=== PATIENT | female | born 1960 | race African-American/Black ===

== ENCOUNTER 2017-11-03 07:30 | Emergency (ER) | payer SELFPAY ==
[~2017-11-03] VITALS: Ht 167.6 cm; Wt 98.0 kg
[2017-11-03] MEDS ORDERED: IOHEXOL 350 MG/ML 10 ML VIAL (for RAD DIAG) IVCONTRAST ONE (07:31)
[2017-11-03 07:32] VITALS: BP 191/97; PULSE 83; RESP 14; TEMP 97.7; O2SAT 99
[2017-11-03 07:45] VITALS: O2SAT 97
[2017-11-03] MEDS ORDERED: SODIUM CHLOR 0.9% 1000 ML INJ 1,000 ML IV SCH (07:49)
--- NOTE | 2017-11-03 07:52 | PD ---
HPI Chief Complaint: Abdominal Pain Time Seen by Provider: 07:45 Travel History International Travel<30 days: No Contact w/Intl Traveler<30days: No Traveled to known affect area: No History of Present Illness HPI 57-year-old female complains of constipation for year. She reports diffuse abdominal pain now. Positive bowel movements are reported however she reports large hard stool like the shape of a brick. It is nonbloody. She denies fever. She has tried various [id number] laxatives which have not helped. Diet modification has not helped. She reports a family history of cancer however has had none herself. She reports vomiting once in the past few days however denies nausea vomiting within the past few days at the time of interview. PFSH Past Medical History Diminished Hearing: No Medical other: Yes (HERNIA) Respiratory: Yes (CHRONIC BRONCHITIS) Shingles: Yes Tetanus Vaccination: > 5 Years Influenza Vaccination: No : 3 Para: 2 Miscarriage: 0 : 1 Past Surgical History Section: Yes (X2) Gynecologic Surgery: Yes () Social History Alcohol Use: No (HX OF) Tobacco Use: No (QUIT 12/2016) Substance Use: No (HX OF MARIJUANA, SMOKE COCAINE) Allergies-Medications (Allergen,Severity, Reaction): Coded Allergies: No Known Allergies (Unverified Adverse Reaction, Unknown, 11/03/17) Reported Meds & Prescriptions Reported Meds & Active Scripts Active Polyethylene Glycol 3350 Powder (Polyethylene Glycol) 17 Gram Pow 17 Gm PO DAILY 14 Days Review of Systems Except as stated in HPI: all other systems reviewed are Neg Physical Exam Narrative GENERAL: 57-year-old female pleasant well-nourished well-developed speaking full sentences ambulatory refuses rectal exam Vital Signs Date Time Temp Pulse Resp B/P (MAP) Pulse Ox O2 Delivery O2 Flow Rate FiO2 11/03/17 07:32 97.7 83 14 191/97 (128) 99 SKIN: Warm and dry. HEAD: Atraumatic. Normocephalic. EYES: Pupils equal and round. No scleral icterus. No injection or drainage. ENT: No nasal bleeding or discharge. Mucous membranes pink and moist. NECK: Trachea midline. No JVD. CARDIOVASCULAR: Regular rate and rhythm. RESPIRATORY: No accessory muscle use. Clear to auscultation. Breath sounds equal bilaterally. GASTROINTESTINAL: Soft. No focus of tenderness. No distention. MUSCULOSKELETAL: Extremities without clubbing, cyanosis, or edema. No obvious deformities. NEUROLOGICAL: Awake and alert. No obvious cranial nerve deficits. Motor grossly within normal limits. Five out of 5 muscle strength in the arms and legs. Normal speech. PSYCHIATRIC: Appropriate mood and affect; insight and judgment normal. Data Data Last Documented VS Vital Signs Date Time Temp Pulse Resp B/P (MAP) Pulse Ox O2 Delivery O2 Flow Rate FiO2 11/03/17 11:18 74 16 162/74 (103) 99 11/03/17 07:45 Room Air 11/03/17 07:32 97.7 Orders Orders Complete Blood Count With Diff (11/03/17 07:49) Comprehensive Metabolic Panel (11/03/17 07:49) Lipase (11/03/17 07:49) Urinalysis - C+S If Indicated (11/03/17 07:49) Ct Abd/Pel W Iv Contrast(Rout) (11/03/17 07:49) Iv Access Insert/Monitor (11/03/17 07:49) Ecg Monitoring (11/03/17 07:49) Oximetry (11/03/17 07:49) Morphine Inj (Morphine Inj) (11/03/17 08:00) Ondansetron Inj (Zofran Inj) (11/03/17 08:00) Sodium Chlor 0.9% 1000 Ml Inj (Ns 1000 M (11/03/17 07:49) Sodium Chloride 0.9% Flush (Ns Flush) (11/03/17 08:00) Oral Contrast - Adult (11/03/17 08:06) Diatrizoate Liq (Md Rowell Liq) (11/03/17 08:13) Diatrizoate Liq (Md Rowell Liq) (11/03/17 08:20) Iohexol 350 Inj (Omnipaque 350 Inj) (11/03/17 07:31) Ed Discharge Order (11/03/17 11:17) Labs Laboratory Tests Test 11/03/17 08:00 11/03/17 09:00 White Blood Count 7.3 TH/MM3 Red Blood Count 4.44 MIL/MM3 Hemoglobin 13.2 GM/DL Hematocrit 39.1 % Mean Corpuscular Volume 88.2 FL Mean Corpuscular Hemoglobin 29.8 PG Mean Corpuscular Hemoglobin Concent 33.8 % Red Cell Distribution Width 14.6 % Platelet Count 224 TH/MM3 Mean Platelet Volume 9.6 FL Neutrophils (%) (Auto) 51.0 % Lymphocytes (%) (Auto) 40.7 % Monocytes (%) (Auto) 6.0 % Eosinophils (%) (Auto) 1.7 % Basophils (%) (Auto) 0.6 % Neutrophils # (Auto) 3.7 TH/MM3 Lymphocytes # (Auto) 3.0 TH/MM3 Monocytes # (Auto) 0.4 TH/MM3 Eosinophils # (Auto) 0.1 TH/MM3 Basophils # (Auto) 0.0 TH/MM3 CBC Comment DIFF FINAL Differential Comment Blood Urea Nitrogen 11 MG/DL Creatinine 0.94 MG/DL Random Glucose 104 MG/DL Total Protein 7.7 GM/DL Albumin 4.1 GM/DL Calcium Level 9.2 MG/DL Alkaline Phosphatase 78 U/L Aspartate Amino Transf (AST/SGOT) 21 U/L Alanine Aminotransferase (ALT/SGPT) 31 U/L Total Bilirubin 0.9 MG/DL Sodium Level 142 MEQ/L Potassium Level 4.1 MEQ/L Chloride Level 110 MEQ/L Carbon Dioxide Level 27.5 MEQ/L Anion Gap 5 MEQ/L Estimat Glomerular Filtration Rate 75 ML/MIN Lipase 132 U/L Urine Color LIGHT-YELLOW Urine Turbidity HAZY Urine pH 6.5 Urine Specific [place] 1.005 Urine Protein NEG mg/dL Urine Glucose (UA) NEG mg/dL Urine Ketones NEG mg/dL Urine Occult Blood NEG Urine Nitrite NEG Urine Bilirubin NEG Urine Urobilinogen LESS THAN 2.0 MG/DL Urine Leukocyte Esterase NEG Urine RBC 1 /hpf Urine WBC 1 /hpf Urine Squamous Epithelial Cells 8 /hpf Urine Bacteria RARE /hpf Microscopic Urinalysis Comment CULT NOT INDICATED MDM Medical Decision Making Medical Screen Exam Complete: Yes Emergency Medical Condition: Yes Medical Record Reviewed: Yes Differential Diagnosis Constipation, Gastritis, Acute Cholecystitis, Biliary Colic, Pancreatitis, JENKINS , Hepatitis, Bowel Obstruction, Cystitis, Mesenteric Ischemia, AAA, Appendicitis , Renal Stone/Hydronephrosis, GERD, perforated viscous Narrative Course CBC & BMP Diagram 11/03/17 08:00 Total Protein 7.7, Albumin 4.1, Calcium Level 9.2, Alkaline Phosphatase 78, Aspartate Amino Transf (AST/SGOT) 21, Alanine Aminotransferase (ALT/SGPT) 31, Total Bilirubin 0.9 Last Impressions Abdomen/Pelvis CT 11/03/17 0749 Signed Impressions: Service Date/Time: Friday, November 03, 2017 10:42 - CONCLUSION: I do not see an etiology for the record quadrant pain. Gallbladder is unremarkable. Anthony Salomon MD FACR The patient is resting comfortably and feels better, is alert and in no distress. The patients results and examination findings were discussed. The repeat examination is unremarkable and benign. The history, exam, diagnostic testing, and current condition do not suggest any significant pathology to warrant further testing, continued ED treatment, admission, or surgical evaluation at this point. The vital signs have been stable. The patient does not have uncontrollable pain, intractable vomiting, or other significant symptoms. The patient's condition is stable and appropriate for discharge. The patient will pursue further outpatient evaluation with a primary care physician or other designated or consulting physician as indicated in the discharge instructions. The patient expressed understanding and was agreeable with this plan. Diagnosis Primary Impression: Constipation Qualified Codes: K59.00 - Constipation, unspecified Referrals: [facility] call for appointment Med/Other Pt SpecificInfo: Prescription(s) given Scripts Polyethylene Glycol 3350 Powder (Polyethylene Glycol 3350 Powder) 17 Gram Pow 17 GM PO DAILY for Constipation for 14 Days, #1 BOTTLE 0 Refills Prov: Carlos Soto MD 11/03/17 Disposition: 01 DISCHARGE HOME Condition: Stable Carlos Soto MD Nov 03, 2017 07:52
[2017-11-03] MEDS ORDERED: ONDANSETRON HCL 4 MG/2 ML VIAL IVP ONE (08:00)
[2017-11-03] MEDS ORDERED: MORPHINE SULFATE 4 MG/ML INJ IV PUSH ONE (08:00)
[2017-11-03] MEDS ORDERED: SODIUM CHLORIDE 0.9% FLUSH 10 ML FLUSH IV FLUSH PRN (08:00)
[2017-11-03] MEDS ORDERED: DIATRIZOATE MEGLUM/DIATRIZOATE SOD 9 ML CUP ONE ×2 (08:13→08:20)
[2017-11-03 08:14] LABS: AUTOMATED NEUTROPHIL # 3.7 TH/MM3 (1.8-7.7); BASOPHIL % 0.6 % (0.0-2.0); EOSINOPHIL # 0.1 TH/MM3 (0-0.4); EOSINOPHIL % 1.7 % (0.0-4.0); HEMATOCRIT 39.1 % (35.0-46.0); HEMOGLOBIN 13.2 GM/DL (11.6-15.3); LYMPH % 40.7 % (9.0-44.0); MEAN CELL VOLUME 88.2 FL (80.0-100.0); MEAN CORPUSCULAR HEMOGLOBIN 29.8 PG (27.0-34.0); MEAN CORPUSCULAR HGB CONC 33.8 % (32.0-36.0); MEAN PLATELET VOLUME 9.6 FL (7.0-11.0); MONOCYTE # 0.4 TH/MM3 (0-0.9); PLATELET COUNT 224 TH/MM3 (150-450); RED BLOOD COUNT 4.44 MIL/MM3 (4.00-5.30); RED CELL DISTRIBUTION WIDTH 14.6 % (11.6-17.2); WHITE BLOOD COUNT 7.3 TH/MM3 (4.0-11.0)
[2017-11-03 08:34] LABS: ALBUMIN 4.1 GM/DL (3.4-5.0); ALT (GPT) 31 U/L (10-53); AST (GOT) 21 U/L (15-37); BICARBONATE 27.5 MEQ/L (21.0-32.0); BLOOD UREA NITROGEN 11 MG/DL (7-18); CALCIUM 9.2 MG/DL (8.5-10.1); CHLORIDE 110 MEQ/L (98-107); CREATININE 0.94 MG/DL (0.50-1.00); GLOMERULAR FILTRATION RATE 75 ML/MIN (>89); GLUCOSE,RANDOM 104 MG/DL (74-106); SODIUM (NA) 142 MEQ/L (136-145)
[2017-11-03 08:36] LABS: ALKALINE PHOSPHATASE 78 U/L (45-117); TOTAL BILIRUBIN ADULT 0.9 MG/DL (0.2-1.0); TOTAL PROTEIN 7.7 GM/DL (6.4-8.2)
[2017-11-03 09:35] LABS: BACTERIA, URINE RARE /hpf; BILIRUBIN, URINE NEG (NEG); BLOOD, URINE NEG (NEG); GLUCOSE,URINE NEG (NEG); KETONE, URINE NEG (NEG); NITRITE,URINE NEG (NEG); PH, URINE 6.5 (5.0-8.5); SQUAMOUS EPITHELIAL CELL URINE 8 /hpf (0-5); URINE COLOR LIGHT-YELLOW (YELLW/STRAW); URINE LEUKOCYTE ESTERASE NEG (NEG)
--- NOTE | 2017-11-03 11:07 | RADRPT ---
EXAM DATE/TIME: 11/03/2017 10:42 This report includes an Addendum and supersedes previous reports for this exam. [facility] COMPARISON: CT ABDOMEN & PELVIS W CONTRAST, December 01, 2014, 23:39. INDICATIONS : Right upper quadrant pain, constipation, bloody stools. IV CONTRAST: 72 cc Omnipaque 350 (iohexol) IV ORAL CONTRAST: No oral contrast ingested. RADIATION DOSE: 14.80 CTDIvol (mGy) MEDICAL HISTORY : None SURGICAL HISTORY : section. ENCOUNTER: Initial ACUITY: 2 weeks PAIN SCALE: 5/10 LOCATION: Right upper quadrant TECHNIQUE: Volumetric scanning of the abdomen and pelvis was performed. Using automated exposure control and ad justment of the mA and/or kV according to patient size, radiation dose was kept as low as reasonably achievable to obtain optimal diagnostic quality images. DICOM format image data is available electro nically for review and comparison. FINDINGS: LOWER LUNGS: The visualized lower lungs are clear. LIVER: Homogeneous density without lesion. There is no dilation of the biliary tree. No calcified gallston es. SPLEEN: Normal size without lesion. PANCREAS: Within normal limits. KIDNEYS: Normal in size and shape. There is no mass, stone or hydronephrosis. ADRENAL GLANDS: Within normal limits. VASCULAR: There is no aortic aneurysm. BOWEL/MESENTERY: The stomach, small bowel, and colon demonstrate no acute abnormality. There is no free intraperitone al air or fluid. ABDOMINAL WALL: Within normal limits. RETROPERITONEUM: There is no lymphadenopathy. BLADDER: No wall thickening or mass. REPRODUCTIVE: Probable small fibroid uterus INGUINAL: There is no lymphadenopathy or hernia. MUSCULOSKELETAL: Moderate degenerative changes lumbar spine CONCLUSION: I do not see an etiology for the record quadrant pain. Gallbladder is unremarkable. Anthony Salomon MD FACR on November 03, 2017 at 11:04 Board Certified Radiologist. This report was verified electronically. ADDENDUM: Please note, conclusion should read "I do not see an etiology for the patient's right upper quadrant pain". Maury Soliz MD on November 07, 2017 at 12:49 Board Certified Radiologist. This report was verified electronically.
[2017-11-03 11:18] VITALS: BP 162/74
[2017-11-03] MEDS ORDERED: POLY17S PO (11:18)
== END 2017-11-03 11:27 | disposition home or self-care (01) ==
LOC: NEPE 07:30
DX: K59.00 Constipation, unspecified (principal)
CPT/HCPCS: 74177; 80053; 81001; 83690; 85025; 96374; 96375; 99284; J2270; J2405; J7030; Q9963; Q9967